=== PATIENT | female | born 1975 | race Caucasian/White ===

== ENCOUNTER 2017-08-10 10:54 | Observation (INO) | payer BC ==
[~2017-08-10] VITALS: Ht 160 cm; Wt 86.7 kg
[~2017-08-10 10:54] MED LIST: AMOXICILLIN500 MG PO; CLEOCIN150 MG PO; DOXYCYCL HYC100 MG PO; LEXAPRO10 MG OR; LORTAB5 PO; NORCO1 TA1 PO; ONDANSETRON4 MG PO; STERAPRED DS10 MG PO
--- NOTE | 2017-08-10 10:54 | NUR ---
PT BROUGHT IMMED BACK TO ER ROOM 14. PT AMBULATED WITH STEADY GAIT. TWIN SISTER @ BEDSIDE. EKG COMPLETED. PT CHANGED INTO GOWN.
--- NOTE | 2017-08-10 11:22 | NUR ---
1 UNSUCCESSFUL IV ATTEMPT. PT & SISTER LITERALLY DIRECTING ME ON WHAT TO DO & MAKING STATEMENTS SUCH "YOU BETTER NOT BE STICKING ME ALL DAY BC YOU KNOW YOU CAN JUST DRAW OUT THAT ONCE IV ONCE YOU FINALLY GET IT". CHARGE NURSE ASKED TO ESTABLISH IV.
[2017-08-10 11:57] LABS: HEMATOCRIT 41.5 % (37.0-47.0); HEMOGLOBIN 13.4 g/dl (12.0-16.0); IMMATURE GRANULOCYTES 0.6 % (0.0-1.0); MEAN CELL VOLUME 86.3 fL CALC (80.0-100.0); MEAN CORPUSCULAR HGB 27.9 pG CALC (26.0-32.0); MEAN CORPUSCULAR HGB CONC 32.3 g/L CALC (32.0-36.0); NEUT# 6.05 thou/uL (2.00-7.15); RED BLOOD COUNT 4.81 mill/uL (4.20-5.60); RED CELL DISTRI WIDTH 13.4 % (11.5-15.5)
--- NOTE | 2017-08-10 11:57 | NUR ---
PT MEDICATED FOR BP OF 186/84 & CHEWABLE ASA. SISTER @ BEDSIDE. PT/SISTER EDUCATED ON MED & SIDE EFFECT & PURPOSE. PT & SISTER REPEATEDLY REMINDING STAFF THAT THEY ARE VET ASSISTANCE AND KNOW IT ALL.
[2017-08-10 12:07] LABS: ANION GAP 14 (6-22 (CALC)); BUN 13 mg/dL (7-17); BUN/CREATININE RATIO 18 (12-20 (CALC)); CARBON DIOXIDE 28 mmol/l (22-30); CHLORIDE 105 mmol/l (95-108); CREATININE 0.7 mg/dL (0.5-1.0); GFR > 60 ML/MIN (>=60 (CALC)); GFR FOR AFR.AMER. > 60 ML/MIN (>=60 (CALC)); POTASSIUM 3.8 mmol/l (3.5-5.1); SODIUM 142 mmol/l (137-146)
--- NOTE | 2017-08-10 12:33 | NUR ---
PT UP TO BATHROOM FOR UA SAMPLE.
--- NOTE | 2017-08-10 13:24 | NUR ---
Admission Note Report Given to: BRETT CORBIN Transported by: Wheelchair X Stretcher Transported with: X Nurse Transporter X Patent IV O2 X Completion Supervisor
[2017-08-10 13:38] VITALS: BP 202/113
--- NOTE | 2017-08-10 13:38 | NUR ---
female pt received to ICU bed 3 ([facility]) via stretcher accompanied by Tara Luna RN in stable condition; ambulatory from stretcher to scale then bed with steady gait; admission assessment completed at this time; pt alert and oriented; c/c of non-radiating, sharp midsternal chest pain starting yesterday associated with diaphoresis; denies n/v/contributing factors; resp even and unlabored; lungs clear; skin color wnl; ra; hr reg; sr on monitor; abd soft with bs present; no bm noted per financial writer; pt admits to urinating without pain or burning; no urine to inspect at this time; #20 in lac flushed and patent; no redness or edema noted at site; plan of care/flush explained; pt oriented to bed and call light system; no smoking policy explained; will continue to monitor
--- NOTE | 2017-08-10 13:48 | NUR ---
PT TRANSFERED TO ICU #3 IN STABLE CONDITION. RN @ BEDSIDE.
--- NOTE | 2017-08-10 14:03 | NUR ---
home food provided per family; pt informed, diet has not been ordered yet; pt sitting on side of bed comsuming home meal
--- NOTE | 2017-08-10 14:22 | NUR ---
Vickie Ramsey NP informed of pt admission to unit and need for orders; SERVER SECURITY ADMINISTRATOR also informed per this machine sign writer, BP 202/113, hr 77; orders to be placed
[2017-08-10 14:37] VITALS: BP 199/106
[2017-08-10 14:43] LABS: CHOLESTEROL HDL RATIO 2.7 (<4.4 (CALC))
--- NOTE | 2017-08-10 14:50 | NUR ---
awake in bed; family at bedside; iv intact; sr on monitor; TOMMY Camargo at bedside; bp 199/106, hr 79; medicated; call light within reach; will continue to monitor
--- NOTE | 2017-08-10 15:06 | NUR ---
FAN PROVIDED FOR PT COMFORT
[2017-08-10 15:15] VITALS: BP 163/80
[2017-08-10 16:00] VITALS: BP 162/93
--- NOTE | 2017-08-10 16:00 | NUR ---
pt awake in bed; talking on cell phone; visitors at bedside; no distress noted; pt offers no complaints; iv intact; o2 per nc; sr on monitor; call light within reach; will continue to monitor
--- NOTE | 2017-08-10 17:40 | NUR ---
SETUP ASSISTANCE PROVIDED WITH PM MEAL
--- NOTE | 2017-08-10 18:15 | NUR ---
awake in bed; family at bedside; no distress noted; pt offers no complaints; iv intact; sr on monitor; bp improving; bed in lowest position; call light within reach
[2017-08-10 18:16] VITALS: BP 152/80
--- NOTE | 2017-08-10 19:30 | NUR ---
PT SITTING UP IN BED VISITING WITH VISITORS. PT IS ALERT AND ORIENTED X3. PERRLA. RESP ARE EVEN AND UNLABORED. NO DISTRESS NOTED. LUNGS ARE CLEAR THROUGHOUT. HR REGULAR. PERIPHERAL PULSES PALPABLE. NO EDEMA NOTED. PT DENIES CHEST PAIN AND SOB AT THIS TIME. BS ACTIVE. #20 LAC SALINE LOCKED. NO REDNESS OR EDEMA NOTED. CALL LIGHT IN REACH WILL CONTINUE TO MONITOR
--- NOTE | 2017-08-11 | NUR ---
PT RESTING IN BED WITH EYES CLOSED. RESP ARE EVEN AND UNLABORED. NO DISTRESS NOTED. WILL CONTINUE TO MONITOR
--- NOTE | 2017-08-11 00:14 | NUR ---
LAB INTO DRAW TROPONIN
[2017-08-11 04:00] VITALS: BP 135/73
--- NOTE | 2017-08-11 04:02 | NUR ---
PT RESTING IN BED WITH EYES CLOSED. RESP ARE EVEN AND UNLABORED. NO DISTRESS NOTED. WILL CONTINUE TO MONITOR
--- NOTE | 2017-08-11 05:47 | NUR ---
LAB INTO DRAW AM LABS
--- NOTE | 2017-08-11 07:10 | NUR ---
PT LAYING IN BED TALKING ON HER CELL PHONE, PT DENIES ANY CHEST PAIN, PT A & O X3, PERRL, HR 70, RESP.20, BP 149/85, O2 98% ON RA, LUNG SOUNDS CLEAR IN ALL PETER, 20G LAC IV, SALINE LOCKED, NO REDNESS OR DRAINAGE AT SITE, STRONG RADIAL AND PEDAL PULSES, AM ASSESSMENT COMPLETE, SEE INTERVENTIONS, SAFETY MEASURES REINFORCED, CALL FLOWER WITHIN REACH
--- NOTE | 2017-08-11 07:35 | NUR ---
SETUP UP ASSISTANCE PROVIDED WITH RICKEY BAUTISTA
[2017-08-11 08:21] VITALS: BP 149/85
--- NOTE | 2017-08-11 09:10 | NUR ---
PT'S SISTER AT BEDSIDE
--- NOTE | 2017-08-11 09:15 | NUR ---
PT TO MS VIA WC TO GET WASHED UP, PT TOLERATING WELL, VERBALIZES NO COMPLAINTS
[2017-08-11] MEDS ORDERED: CHILD ASA LS81 MG PO (09:46)
[2017-08-11] MEDS ORDERED: LISINOPRIL20 M1 PO (09:46)
[2017-08-11] MEDS ORDERED: AMLODIPINE BESYL5 MG PO (09:46)
[2017-08-11] MEDS ORDERED: NITROSTAT0.4 MG SL (09:56)
--- NOTE | 2017-08-11 10:00 | NUR ---
DR PEARSON AT BEDSIDE DISCUSSING PLAN OF CARE AND DISCHARGE PLAN
--- NOTE | 2017-08-11 10:15 | NUR ---
Discharge instructions given. Patient verbalizes understanding of same. Discharged in stable condition via Wheelchair to Home with family. All belongings sent with pt.
== END 2017-08-11 10:15 | disposition home or self-care (01) | DRG 305 ==
LOC: ED 10:54 → ED-I 12:17 → ED 12:35 → ICU 12:36
PROVIDERS: Family Medicine; Nurse Practitioner Family; ADMIT Internal Medicine; ATTEND Internal Medicine
DX: I16.0 Hypertensive urgency (principal); I10 Essential (primary) hypertension; F17.210 Nicotine dependence, cigarettes, uncomplicated; G89.29 Other chronic pain; M54.5 Low back pain; Z82.49 Family history of ischemic heart disease and other diseases of the circulatory system

== ENCOUNTER 2017-08-24 21:50 | Observation (INO) | payer BC ==
[~2017-08-24] VITALS: Ht 160 cm; Wt 88.6 kg
[~2017-08-24 21:50] MED LIST changes: +AMLODIPINE BESYL5 MG PO; +CHILD ASA LS81 MG PO; +LISINOPRIL20 M1 PO; +NITROSTAT0.4 MG SL
--- NOTE | 2017-08-24 21:58 | NUR ---
PT REFUSED WC, AMBULATED TO ER ROOM 6 WITH MOM. CHANGED INTO GOWN.
--- NOTE | 2017-08-24 22:05 | NUR ---
A/O F WITH REPORTED CP THIS PM,TOOK NTG WITH RELIEF SHARP PAINS IN NATURE,HX SAME HAS BEEN TX FOR RAPID HR,HTN,SCHEDULED FOR STRESS TEST UPCOMING. TANNED W/DRY SKIN.PINK MOIST ORAL MUCOSA.ALSO HAS A HEADACHE-HER USUAL COMPLAINT
[2017-08-24 22:47] LABS: HEMATOCRIT 40.3 % (37.0-47.0); IMMATURE GRANULOCYTES 0.6 % (0.0-1.0); MEAN CELL VOLUME 86.3 fL CALC (80.0-100.0); MEAN CORPUSCULAR HGB 27.8 pG CALC (26.0-32.0); MEAN CORPUSCULAR HGB CONC 32.3 g/L CALC (32.0-36.0); NEUT# 6.94 thou/uL (2.00-7.15); RED BLOOD COUNT 4.67 mill/uL (4.20-5.60); RED CELL DISTRI WIDTH 14.2 % (11.5-15.5)
[2017-08-24 22:57] LABS: URINE BILIRUBIN - DIPSTICK NEGATIVE (NEGATIVE); URINE BLOOD DIPSTICK NEGATIVE (NEGATIVE); URINE COLOR YELLOW; URINE GLUCOSE - DIPSTICK NEGATIVE (NEGATIVE); URINE KETONE NEGATIVE (NEGATIVE); URINE LEUK ESTERASE NEGATIVE (NEGATIVE); URINE NITRITE - DIPSTICK NEGATIVE (Negative); URINE PH 5.5 (4.5-8.0); URINE PROTEIN - DIPSTICK NEGATIVE (NEG-TRACE); URINE SPECIFIC GRAVITY >=1.030; URINE UROBILINOGEN - DIPSTICK 0.2 E.U./dL (0.2)
[2017-08-24 23:08] LABS: URINE CLARITY CLEAR
[2017-08-24 23:12] LABS: ACT PARTIAL THROMBO TIME 25.5 SECONDS (20.0-32.5); INTERNATIONAL NORMALIZED RATIO 0.9 RATIO (0.7-1.3)
[2017-08-24 23:25] LABS: ALKALINE PHOSPHATASE 76 u/l (38-126); ANION GAP 18 (6-22 (CALC)); BILIRUBIN, TOTAL 0.4 mg/dL (0.0-1.4); BUN 19 mg/dL (7-17); BUN/CREATININE RATIO 29 (12-20 (CALC)); CARBON DIOXIDE 20 mmol/l (22-30); CHLORIDE 108 mmol/l (95-108); CREATININE 0.6 mg/dL (0.5-1.0); GFR > 60 ML/MIN (>=60 (CALC)); GFR FOR AFR.AMER. > 60 ML/MIN (>=60 (CALC)); SGOT/AST 28 u/l (14-36); SGPT/ALT 58 u/l (9-52); SODIUM 142 mmol/l (137-146); TOTAL PROTEIN 7.1 g/dL (6.3-8.2)
[2017-08-24 23:37] LABS: MYOGLOBIN 24 ng/mL (0 - 62)
--- NOTE | 2017-08-25 00:34 | NUR ---
PT REMAINS PAINFREE IN SR NO ECTOPY W/P/D SKIN APPEARS NONTOXIC
--- NOTE | 2017-08-25 01:30 | NUR ---
PT REPORT TO SABINA QUINTANA ON MS
--- NOTE | 2017-08-25 01:44 | NUR ---
TO MS VIA STRETCHER IN STABLE CONDITION
[2017-08-25 01:53] VITALS: BP 118/58
[2017-08-25 04:38] VITALS: BP 121/72
--- NOTE | 2017-08-25 06:00 | NUR ---
PATIENT RESTING IN BED-NO COMPLAINTS AT THIS TIME. CALL LIGHT IN REACH. WILL CONT TO MONITOR.
--- NOTE | 2017-08-25 06:53 | NUR ---
PATIENT ADMITTED FROM ER VIA STRETCHER WITH ER STAFF IN ATTENDANCE. PATIENT TO STANDING SCALE AND THEN TO BED. STEADY ON HER FEET. ALERT AND ORIENTEDX3 WITH NO COMPLAINTS OF PAIN AT THIS TIME. PATIENT STATES THAT SHE WAS TAKING WALK TONIGHT AND DEVELOPED MID STERNAL CHEST PAIN-TOOK NITROX1 WITH RELIEF. FAMILY THEN BROUGHT HER TO THE ER. PATIENT ORIENTED TO ROOM AND SURROUNDINGS. INSTRUCTED ON USE OF NURSE CALL LIGHT SYSTEM, TV REMOTE, AND PHONE. SAFETY PRECAUTIONS REVIEWED WITH PATIENT. CALL LIGHT IN REACH. WILL CONT TO MONITOR.
--- NOTE | 2017-08-25 07:00 | NUR ---
SHIFT CHANGE REPORT FROM MALATHI MUHAMMAD AWAKE ALERT AND ORIENTED AMBULATING TO BR AT THIS TIME, DENIES PAIN/DISCOMFORT, TELE MONITOR IN PLACE, CALL FLOWER IN REACH.
[2017-08-25 07:45] VITALS: BP 103/61
[2017-08-25 09:12] VITALS: BP 103/61
--- NOTE | 2017-08-25 11:38 | NUR ---
RESTING IN BED AT THIS TIME, NO C/O DISCOMFORT, WANTS TO GO HOME AND INQUIRING WHETHER OR NOT SHE WILL BE D/C TODAY. ADVISED MD WILL BE HERE SOMETIME TODAY AND WILL ADVISE HER OF POC AFTER HE ASSESSES HER, WILL CONTINUE TO MONITOR, CALL FLOWER IN REACH.
[2017-08-25] MEDS ORDERED: LIPITOR20 MG PO (12:18)
[2017-08-25] MEDS ORDERED: LOPRESSOR25 M1 PO (12:19)
--- NOTE | 2017-08-25 13:10 | NUR ---
Discharge instructions given. Patient verbalizes understanding of same. Discharged in good condition via Ambulatory to Home with family. All belongings sent with pt.
== END 2017-08-25 13:40 | disposition home or self-care (01) | DRG 311 ==
LOC: ED 21:50 → ED-I 08-25 00:20 → ED 08-25 01:04 → MS2 08-25 01:05
PROVIDERS: Emergency Medicine; ADMIT Internal Medicine; ATTEND Internal Medicine
DX: I20.9 Angina pectoris, unspecified (principal); I16.0 Hypertensive urgency; I10 Essential (primary) hypertension; F17.210 Nicotine dependence, cigarettes, uncomplicated; Z82.49 Family history of ischemic heart disease and other diseases of the circulatory system
CPT/HCPCS: G0378

== ENCOUNTER 2017-09-28 17:14 | Observation (INO) | payer BC ==
[~2017-09-28] VITALS: Ht 160 cm; Wt 90.2 kg
[~2017-09-28 17:14] MED LIST changes: +LIPITOR20 MG PO; +LOPRESSOR25 M1 PO
[2017-09-28 17:53] LABS: HEMATOCRIT 40.3 % (37.0-47.0); IMMATURE GRANULOCYTES 0.6 % (0.0-1.0); MEAN CELL VOLUME 87.8 fL CALC (80.0-100.0); MEAN CORPUSCULAR HGB 28.3 pG CALC (26.0-32.0); MEAN CORPUSCULAR HGB CONC 32.3 g/L CALC (32.0-36.0); NEUT# 5.67 thou/uL (2.00-7.15); RED BLOOD COUNT 4.59 mill/uL (4.20-5.60); RED CELL DISTRI WIDTH 14.9 % (11.5-15.5)
[2017-09-28 18:12] LABS: ALBUMIN 4.1 g/dL (3.2-5.0); ALKALINE PHOSPHATASE 70 u/l (38-126); ANION GAP 17 (6-22 (CALC)); BILIRUBIN, TOTAL 0.3 mg/dL (0.0-1.4); BUN 14 mg/dL (7-17); BUN/CREATININE RATIO 22 (12-20 (CALC)); CARBON DIOXIDE 23 mmol/l (22-30); CHLORIDE 108 mmol/l (95-108); CREATININE 0.6 mg/dL (0.5-1.0); GFR > 60 ML/MIN (>=60 (CALC)); GFR FOR AFR.AMER. > 60 ML/MIN (>=60 (CALC)); POTASSIUM 3.7 mmol/l (3.5-5.1); SGOT/AST 32 u/l (14-36); SGPT/ALT 65 u/l (9-52); SODIUM 145 mmol/l (137-146); TOTAL PROTEIN 7.2 g/dL (6.3-8.2)
[2017-09-28 18:23] LABS: MYOGLOBIN 20 ng/mL (0 - 62)
[2017-09-28] MEDS ORDERED: METOPROL TAR25 MG PO (18:41)
[2017-09-28 18:45] LABS: URINE BILIRUBIN - DIPSTICK NEGATIVE (NEGATIVE); URINE BLOOD DIPSTICK NEGATIVE (NEGATIVE); URINE COLOR YELLOW; URINE GLUCOSE - DIPSTICK NEGATIVE (NEGATIVE); URINE KETONE NEGATIVE (NEGATIVE); URINE LEUK ESTERASE NEGATIVE (NEGATIVE); URINE NITRITE - DIPSTICK NEGATIVE (Negative); URINE PROTEIN - DIPSTICK NEGATIVE (NEG-TRACE); URINE UROBILINOGEN - DIPSTICK 0.2 E.U./dL (0.2)
[2017-09-28 18:51] LABS: URINE CLARITY SL CLOUDY
[2017-09-28 19:30] VITALS: BP 169/96
[2017-09-29 00:02] VITALS: BP 141/76
[2017-09-29 05:04] VITALS: BP 133/71
[2017-09-29 07:54] VITALS: BP 158/74
[2017-09-29 11:05] VITALS: BP 151/86
[2017-09-29] MEDS ORDERED: PANTOPRAZOLE SO40 M1 PO (13:02)
[2017-09-29] MEDS ORDERED: LISINOPRIL20 M1 PO (13:02)
[2017-09-29 15:35] VITALS: BP 117/60
== END 2017-09-29 18:20 | disposition home or self-care (01) | DRG 311 ==
LOC: ED 17:14 → ED-I 18:36 → ED 18:48 → MS2 18:49
PROVIDERS: ADMIT Internal Medicine; ATTEND Internal Medicine
DX: I20.9 Angina pectoris, unspecified (principal); I16.0 Hypertensive urgency; I10 Essential (primary) hypertension; R51 Headache; Z87.891 Personal history of nicotine dependence
CPT/HCPCS: G0378

== ENCOUNTER 2021-07-24 09:54 | Emergency (ER) | payer SELFPAY ==
[~2021-07-24] VITALS: Ht 160 cm; Wt 84.0 kg
[~2021-07-24 09:54] MED LIST changes: +METOPROL TAR25 MG PO; +PANTOPRAZOLE SO40 M1 PO
[2021-07-24 10:16] VITALS: BP 182/95
[2021-07-24 10:31] VITALS: BP 168/91
[2021-07-24 10:46] VITALS: BP 167/86
[2021-07-24 10:50] LABS: HEMATOCRIT 42.2 % (37.0-47.0); HEMOGLOBIN 13.4 g/dl (12.0-16.0); IMMATURE GRANULOCYTES 0.4 % (0.0-5.0); MEAN CELL VOLUME 89.2 fL CALC (80.0-100.0); MEAN CORPUSCULAR HGB 28.3 pG CALC (26.0-32.0); MEAN CORPUSCULAR HGB CONC 31.8 g/dL CAL (32.0-36.0); NEUT# 5.41 thou/uL (2.00-7.15); RED BLOOD COUNT 4.73 mill/uL (4.20-5.60); RED CELL DISTRI WIDTH 13.5 % (11.5-15.5)
[2021-07-24 11:10] LABS: ALBUMIN 3.7 g/dL (3.2-5.0); ALKALINE PHOSPHATASE 73 u/l (38-126); ANION GAP 11 (6-22 (CALC)); BILIRUBIN, TOTAL 0.4 mg/dL (0.0-1.4); BUN 13 mg/dL (7-17); BUN/CREATININE RATIO 19 (12-20 (CALC)); CARBON DIOXIDE 25 mmol/l (22-30); CHLORIDE 108 mmol/l (95-108); CREATININE 0.7 mg/dL (0.5-1.0); GFR > 60 ML/MIN (>=60 (CALC)); GFR FOR AFR.AMER. > 60 ML/MIN (>=60 (CALC)); POTASSIUM 3.7 mmol/l (3.5-5.1); SGOT/AST 19 u/l (14-36); SODIUM 140 mmol/l (137-146); TOTAL PROTEIN 6.8 g/dL (6.3-8.2)
[2021-07-24 11:31] VITALS: BP 186/108
[2021-07-24 13:01] VITALS: BP 171/105
[2021-07-24] MEDS ORDERED: TRAMADOL HYDROC50 M1 PO (13:51)
== END 2021-07-24 13:55 | disposition left against medical advice (07) | DRG 313 ==
LOC: ED 09:54
PROVIDERS: Family Medicine
DX: R07.89 Other chest pain (principal); M54.2 Cervicalgia; M25.521 Pain in right elbow; M25.512 Pain in left shoulder; I10 Essential (primary) hypertension; Y04.0XXA Assault by unarmed brawl or fight, initial encounter; Z87.891 Personal history of nicotine dependence
CPT/HCPCS: Q9967